=== PATIENT | male | born 1940 | race Caucasian/White ===

== ENCOUNTER 2021-01-01 09:33 | Outpatient (CLI) | payer MEDICARE | END 2021-01-01 09:34 | disposition home or self-care (01) | LOC: NM 09:33 | PROVIDERS: ATTEND Urology | DX: R97.20 Elevated prostate specific antigen [PSA] (principal) | CPT/HCPCS: 78306; A9503 ==

== ENCOUNTER 2021-11-15 17:21 | Inpatient (IN) | payer MEDICARE ==
[2021-11-15] MEDS ORDERED: Haloperidol Lactate 5 MG/ML VIAL ONE (17:26)
[2021-11-15 17:33] LABS: Actual Bicarbonate (HCO3v) 20 mEq/L (22-28); Analyzer IN Cardio ER; Calcium, Ionized (venous) 1.04 mmol/L (1.16-1.32); Chloride (VBG) 95 mmol/L (98-106); Potassium (VBG) 3.78 mmol/L (3.70-5.30); Sodium 131.6 mmol/L (133-146); pH (venous) 7.36 (7.32-7.43)
[2021-11-15 18:12] LABS: ALT (SGPT) 20 U/L (8-55); AST (SGOT) 22 U/L (5-34); Albumin 4.1 g/dL (3.4-4.8); Alkaline Phosphatase 96 U/L (40-110); Anion Gap 24 mmol/L (10-20); BUN (Urea Nitrogen) 14 mg/dL (8.4-25.7); Bilirubin, Total 0.7 mg/dL (0.2-1.2); Calc. Creatinine Clearance 0 mL/min (70-130); Carbon Dioxide 19 mmol/L (23-31); Chloride 95 mmol/L (98-107); Globulin 2.3 g/dL (2.4-3.5); Magnesium 1.9 mg/dL (1.6-2.6); Potassium 3.7 mmol/L (3.5-5.1); Protein, Total 6.4 g/dL (5.8-8.1); Sodium 134 mmol/L (136-145)
[2021-11-15 18:13] LABS: #Eosinphils 0.1 thou/uL (0.0-0.7); #Lymphocytes 1.9 thou/uL (1.20-3.40); #Monocytes 0.4 thou/uL (0.11-0.59); #Neutrophils 5.2 thou/uL (1.40-6.50); %Basophils 0.3 % (0.0-1.0); %Eosinophils 1.1 % (0.0-10.0); %Lymphocytes 24.9 % (21.0-51.0); %Monocytes 5.2 % (0.0-10.0); %Neutrophils 68.5 % (42.0-75.0); Hemoglobin 13.3 g/dL (14.0-18.0); Mean Corpuscular HGB CONC 34.4 g/dL (32.0-36.0); Mean Corpuscular Hemoglobin 33.6 pg (27.0-31.0); Mean Corpuscular Volume 97.5 fL (78.0-98.0); Mean Platelet Volume 9.3 fL (7.4-10.4); Platelet Count 149 thou/uL (130-400); RBC Distribution Width 11.3 % (11.5-14.5); Red Blood Cell (RBC) Count 3.97 mill/uL (4.70-6.10); White Blood Cell (WBC) Count 7.7 thou/uL (4.8-10.8)
[2021-11-15] MEDS ORDERED: levETIRAcetam in NS 0 ML ONE (18:24)
[2021-11-15] MEDS ORDERED: Lorazepam 2 MG/ML VIAL ONE (18:24)
[2021-11-15 18:28] LABS: Glucose 780 mg/dL (83-110)
[2021-11-15] MEDS ORDERED: levETIRAcetam in NS 200 ML ONE (18:29)
[2021-11-15 18:51] LABS: Bilirubin Negative (Negative); Blood, Urine Negative (Negative); Clarity Clear (Clear); Glucose, Urine (Dipstick) Greater than 1000 mg/dL (Negative); Ketone, Urine Trace mg/dL (Negative); Leukocyte Negative Leu/uL (Negative); Nitrite Negative (Negative); Protein, Urine (Dipstick) Negative (Neg-Trace); Specific Gravity, Urine 1.031 (1.002-1.036); Urobilinogen Normal mg/dL (Less than 2)
[2021-11-15] MEDS ORDERED: Ondansetron ODT 4 MG TAB SL PRN (19:45)
[2021-11-15] MEDS ORDERED: Ondansetron PF 4 MG/2 ML Vial IVP PRN (19:45)
[2021-11-15] MEDS ORDERED: Acetaminophen 325 MG TAB PO PRN (19:45)
[2021-11-15] MEDS ORDERED: Insulin Regular 300 UNITS/3 ML VIAL ONE (20:11)
[2021-11-15] MEDS ORDERED: INSULIN REGULAR IN 0.9 % NACL 100 UNIT/100 ML BAG ONE (20:35)
[2021-11-15] MEDS ORDERED: NS 0.9% w/ 20 MEQ KCL 1,000 ML ONE (20:43)
[2021-11-15] MEDS ORDERED: levETIRAcetam 500 MG TAB PO SCH (21:00)
[2021-11-15 21:07] LABS: Phosphorus 4.9 mg/dL (2.3-4.7)
[2021-11-15] MEDS ORDERED: Acetaminophen 650 MG Suppository PR PRN (21:30)
[2021-11-15] MEDS ORDERED: Dextrose 50% Abboject 50 ML SYRINGE SLOW IVP PRN ×2 (21:30→23:45)
[2021-11-15] MEDS ORDERED: Dextrose 5% in Water 1,000 ML IV PRN ×2 (21:30→23:45)
[2021-11-15 22:47] VITALS: BMI 24.0
[2021-11-15] MEDS ORDERED: Sodium Chloride 0.9% 1,000 ML IV PRN ×4 (23:45)
[2021-11-15] MEDS ORDERED: HUMULIN R 100 UNITS in Sodium Chloride 0.9% 100 ML IVPB SCH (23:45)
[2021-11-15] MEDS ORDERED: Insulin Regular 300 UNITS/3 ML VIAL IVP SCH (23:45)
[2021-11-15] MEDS ORDERED: Dextrose 5 %-0.45 % NaCl 1,000 ML IV PRN (23:45)
[2021-11-15] MEDS ORDERED: NS 0.9% w/ 20 MEQ KCL 1,000 ML/1,000 ML BAG IV PRN ×2 (23:45)
[2021-11-15] MEDS ORDERED: OLANZapine 10 MG VIAL IM SCH (23:45)
[2021-11-15] MEDS ORDERED: D5 1/2 NS w/20 mEq KCL 1,000 ML IV PRN (23:45)
[2021-11-15] MEDS ORDERED: ADD ELECTROLYTE REPLACEMENT SET TO PROFILE FS SCH (23:45)
[2021-11-16] MEDS: Sodium Chloride 0.9% 1,000 ML IV SCH ×3 (00:30→21:56)
[2021-11-16] MEDS ORDERED: Ziprasidone 20 MG VIAL IM SCH (00:30)
[2021-11-16] MEDS ORDERED: Lorazepam 2 MG/ML VIAL SLOW IVP PRN (03:44)
[2021-11-16 04:05] LABS: Hemoglobin A1c 11.5 % (4.0-6.0)
[2021-11-16 04:27] LABS: #Lymphocytes 1.5 thou/uL (1.20-3.40); #Monocytes 0.8 thou/uL (0.11-0.59); #Neutrophils 9.3 thou/uL (1.40-6.50); %Basophils 0.2 % (0.0-1.0); %Eosinophils 0.4 % (0.0-10.0); %Lymphocytes 12.5 % (21.0-51.0); %Monocytes 6.5 % (0.0-10.0); %Neutrophils 80.4 % (42.0-75.0); Hemoglobin 12.9 g/dL (14.0-18.0); Mean Corpuscular HGB CONC 34.1 g/dL (32.0-36.0); Mean Corpuscular Hemoglobin 32.4 pg (27.0-31.0); Mean Corpuscular Volume 94.8 fL (78.0-98.0); Mean Platelet Volume 8.6 fL (7.4-10.4); Platelet Count 156 thou/uL (130-400); RBC Distribution Width 11.5 % (11.5-14.5); Red Blood Cell (RBC) Count 3.97 mill/uL (4.70-6.10); White Blood Cell (WBC) Count 11.6 thou/uL (4.8-10.8)
[2021-11-16 05:06] LABS: Anion Gap 15 mmol/L (10-20); BUN (Urea Nitrogen) 9 mg/dL (8.4-25.7); Calc. Creatinine Clearance 86 mL/min (70-130); Calcium 8.7 mg/dL (7.8-10.44); Carbon Dioxide 28 mmol/L (23-31); Chloride 106 mmol/L (98-107); Glucose 115 mg/dL (83-110); Sodium 146 mmol/L (136-145)
[2021-11-16 05:43] LABS: Potassium 2.8 mmol/L (3.5-5.1)
[2021-11-16] MEDS ORDERED: Electrolyte Replacement Protocol 1 EACH FS PRN (06:06)
[2021-11-16] MEDS ORDERED: Magnesium 2 GM/50 ML(in water) 2 GM in Premix Bag 1 BAG IVPB SCH (06:15)
[2021-11-16] MEDS: Potassium Chloride 40 MEQ in Sodium Chloride 0.9% 250 ML 250 ML IVPB SCH ×2 (06:57→09:46)
[2021-11-16 07:17] LABS: SARS-CoV-2 NAA Rapid Test DETECTED (NotDetected)
[2021-11-16] MEDS ORDERED: Magnevist 469MG/ML 20 ML VIAL ONE (09:12)
[2021-11-16] MEDS: Enoxaparin Sodium 40 MG/0.4 ML SYRINGE SC SCH (09:45)
[2021-11-16] MEDS: levETIRAcetam in NS 1,000 MG in Premix Bag 1 BAG IVPB SCH ×2 (09:45→20:32)
[2021-11-16] MEDS ORDERED: Piperacillin/Tazobactam 3.375 GM in Sodium Chloride 0.9% 100 ML IVPB SCH ×2 (10:45→11:15)
[2021-11-16] MEDS: HumaLOG 300 UNITS/3 ML VIAL SC PRN (11:31)
[2021-11-16] MEDS: methylPREDNISolone Sod Succ 40 MG VIAL IVP SCH ×2 (13:27→21:56)
[2021-11-16] MEDS: Piperacillin/Tazobactam 3.375 GM in Sodium Chloride 0.9% 100 ML IVPB SCH (20:32)
[2021-11-17] MEDS: hydrALAZINE 20 MG/ML VIAL SLOW IVP PRN (04:08)
[2021-11-17] MEDS: Piperacillin/Tazobactam 3.375 GM in Sodium Chloride 0.9% 100 ML IVPB SCH ×2 (04:08→11:01)
[2021-11-17] MEDS: Sodium Chloride 0.9% 1,000 ML IV SCH ×2 (04:11→16:11)
[2021-11-17] MEDS: methylPREDNISolone Sod Succ 40 MG VIAL IVP SCH (06:28)
[2021-11-17] MEDS: HumaLOG 300 UNITS/3 ML VIAL SC PRN ×3 (06:29→17:29)
[2021-11-17] MEDS: Enoxaparin Sodium 40 MG/0.4 ML SYRINGE SC SCH (08:00)
[2021-11-17] MEDS: levETIRAcetam in NS 1,000 MG in Premix Bag 1 BAG IVPB SCH (08:00)
[2021-11-17 08:01] LABS: ALT (SGPT) 19 U/L (8-55); AST (SGOT) 24 U/L (5-34); Albumin 3.5 g/dL (3.4-4.8); Alkaline Phosphatase 88 U/L (40-110); Anion Gap 19 mmol/L (10-20); BUN (Urea Nitrogen) 12 mg/dL (8.4-25.7); Bilirubin, Total 1.2 mg/dL (0.2-1.2); Calc. Creatinine Clearance 82 mL/min (70-130); Calcium 8.5 mg/dL (7.8-10.44); Carbon Dioxide 17 mmol/L (23-31); Chloride 107 mmol/L (98-107); Globulin 2.5 g/dL (2.4-3.5); Glucose 254 mg/dL (83-110); Potassium 3.1 mmol/L (3.5-5.1); Sodium 140 mmol/L (136-145)
[2021-11-17 08:15] LABS: #Lymphocytes 0.7 thou/uL (1.20-3.40); #Monocytes 0.5 thou/uL (0.11-0.59); #Neutrophils 9.6 thou/uL (1.40-6.50); %Basophils 0.1 % (0.0-1.0); %Eosinophils 0.1 % (0.0-10.0); %Lymphocytes 6.9 % (21.0-51.0); %Monocytes 4.4 % (0.0-10.0); %Neutrophils 88.5 % (42.0-75.0); Hemoglobin 13.3 g/dL (14.0-18.0); Mean Corpuscular HGB CONC 35.4 g/dL (32.0-36.0); Mean Corpuscular Hemoglobin 33.1 pg (27.0-31.0); Mean Corpuscular Volume 93.4 fL (78.0-98.0); Mean Platelet Volume 8.9 fL (7.4-10.4); Platelet Count 148 thou/uL (130-400); RBC Distribution Width 11.2 % (11.5-14.5); Red Blood Cell (RBC) Count 4.03 mill/uL (4.70-6.10); White Blood Cell (WBC) Count 10.9 thou/uL (4.8-10.8)
[2021-11-17 08:44] LABS: Prothrombin Time 13.8 sec (12.0-14.7)
[2021-11-17 08:45] LABS: PTT 21.7 sec (22.9-36.1)
[2021-11-17] MEDS: Potassium Chloride 20 MEQ in Premix Bag 1 BAG IVPB SCH ×2 (09:15→11:02)
[2021-11-17] MEDS ORDERED: glipiZIDE 5 MG TAB PO SCH (13:52)
[2021-11-17] MEDS: levETIRAcetam 500 MG TAB PO SCH (21:00)
[2021-11-17] MEDS: Lantus 1000 UNITS/10 ML VIAL SC SCH (21:02)
[2021-11-18] MEDS: Sodium Chloride 0.9% 1,000 ML IV SCH (02:00)
[2021-11-18] MEDS: HumaLOG 300 UNITS/3 ML VIAL SC PRN ×3 (06:35→20:21)
[2021-11-18] MEDS: levETIRAcetam 500 MG TAB PO SCH ×2 (07:58→20:18)
[2021-11-18] MEDS: glipiZIDE 5 MG TAB PO SCH (07:58)
[2021-11-18] MEDS: Enoxaparin Sodium 40 MG/0.4 ML SYRINGE SC SCH (07:58)
[2021-11-18] MEDS ORDERED: methylPREDNISolone Sod Succ 40 MG VIAL IVP SCH (09:00)
[2021-11-18] MEDS: Lantus 1000 UNITS/10 ML VIAL SC SCH (20:19)
[2021-11-19 04:39] LABS: Anion Gap 12 mmol/L (10-20); BUN (Urea Nitrogen) 11 mg/dL (8.4-25.7); Calc. Creatinine Clearance 92 mL/min (70-130); Calcium 8.4 mg/dL (7.8-10.44); Carbon Dioxide 23 mmol/L (23-31); Chloride 106 mmol/L (98-107); Glucose 164 mg/dL (83-110); Sodium 138 mmol/L (136-145)
[2021-11-19 04:45] LABS: Potassium 2.9 mmol/L (3.5-5.1)
[2021-11-19] MEDS: Potassium Chloride 40 MEQ in Sodium Chloride 0.9% 250 ML 250 ML IVPB SCH ×2 (05:44→11:55)
[2021-11-19 07:49] LABS: Magnesium 1.7 mg/dL (1.6-2.6)
[2021-11-19] MEDS: Enoxaparin Sodium 40 MG/0.4 ML SYRINGE SC SCH (08:47)
[2021-11-19] MEDS: glipiZIDE 5 MG TAB PO SCH (08:47)
[2021-11-19] MEDS: levETIRAcetam 500 MG TAB PO SCH ×2 (08:47→19:43)
[2021-11-19] MEDS ORDERED: Magnesium 2 GM/50 ML(in water) 2 GM in Premix Bag 1 BAG IVPB SCH (09:00)
[2021-11-19] MEDS ORDERED: Lisinopril 5 MG TAB PO SCH (10:15)
[2021-11-19 13:10] LABS: Anion Gap 12 mmol/L (10-20); BUN (Urea Nitrogen) 12 mg/dL (8.4-25.7); Calc. Creatinine Clearance 77 mL/min (70-130); Calcium 8.8 mg/dL (7.8-10.44); Carbon Dioxide 23 mmol/L (23-31); Chloride 107 mmol/L (98-107); Glucose 245 mg/dL (83-110); Potassium 3.8 mmol/L (3.5-5.1); Sodium 138 mmol/L (136-145)
[2021-11-19] MEDS: HumaLOG 300 UNITS/3 ML VIAL SC PRN ×3 (13:56→19:45)
[2021-11-19] MEDS: Lantus 1000 UNITS/10 ML VIAL SC SCH (19:44)
[2021-11-20] MEDS: hydrALAZINE 20 MG/ML VIAL SLOW IVP PRN (04:03)
[2021-11-20 05:30] LABS: Magnesium 1.9 mg/dL (1.6-2.6)
[2021-11-20] MEDS ORDERED: Magnesium 2 GM/50 ML(in water) 2 GM in Premix Bag 1 BAG IVPB SCH (06:45)
[2021-11-20 07:40] LABS: Troponin I 0.014 ng/mL (< 0.028)
[2021-11-20 08:10] LABS: Chloride 108 mmol/L (98-107); Potassium 3.2 mmol/L (3.5-5.1); Sodium 139 mmol/L (136-145)
[2021-11-20 08:11] LABS: Calcium 8.4 mg/dL (7.8-10.44); Glucose 155 mg/dL (83-110)
[2021-11-20 08:13] LABS: Anion Gap 12 mmol/L (10-20); Carbon Dioxide 22 mmol/L (23-31)
[2021-11-20 08:15] LABS: Calc. Creatinine Clearance 93 mL/min (70-130)
[2021-11-20 08:16] LABS: BUN (Urea Nitrogen) 9 mg/dL (8.4-25.7)
[2021-11-20] MEDS ORDERED: Potassium Chloride 20 MEQ TAB PO SCH (08:30)
[2021-11-20] MEDS ORDERED: Lisinopril 5 MG TAB PO SCH ×2 (09:00)
[2021-11-20] MEDS: levETIRAcetam 500 MG TAB PO SCH (09:33)
[2021-11-20] MEDS: Enoxaparin Sodium 40 MG/0.4 ML SYRINGE SC SCH (09:33)
[2021-11-20] MEDS: glipiZIDE 5 MG TAB PO SCH (09:34)
[2021-11-20] MEDS: HumaLOG 300 UNITS/3 ML VIAL SC PRN (12:50)
[2021-11-20 16:28] LABS: Potassium 3.6 mmol/L (3.5-5.1)
[2021-11-20 17:12] VITALS: BP 138/74; TEMP 98
== END 2021-11-20 19:37 | disposition home or self-care (01) | DRG 100 ==
LOC: ERS 17:21 → IMCU/EMU 19:35 → 2SW 11-18 19:56
PROVIDERS: ADMIT Student in an Organized Health Care Education/Training Program; ATTEND Internal Medicine
PROC: 8E0ZXY6 Isolation (ICD-10-PCS; principal; 2021-11-15)
DX: G40.909 Epilepsy, unspecified, not intractable, without status epilepticus (principal); U07.1 COVID-19; C79.51 Secondary malignant neoplasm of bone; I47.1 Supraventricular tachycardia; E87.1 Hypo-osmolality and hyponatremia; N17.9 Acute kidney failure, unspecified; E11.65 Type 2 diabetes mellitus with hyperglycemia; I10 Essential (primary) hypertension; E87.6 Hypokalemia; C88.0 Waldenstrom macroglobulinemia; C61 Malignant neoplasm of prostate; Z28.82 Immunization not carried out because of caregiver refusal; Z85.72 Personal history of non-Hodgkin lymphomas; Z79.899 Other long term (current) drug therapy; Z79.52 Long term (current) use of systemic steroids
CPT/HCPCS: 36415; 36416; 51702; 70450; 70553; 71045; 72125; 80048; 80053; 81003; 82010; 82805; 83036; 83735; 83930; 84100; 84484; 85025; 85610; 85730; 87040; 87086; 93005; 93010; 96374; 96375; A9579; J0360; J1630; J1650; J1815; J1953; J2060; J2543; J2920; J3475; J3480; J3486; J3490; J7050; U0002

== ENCOUNTER 2022-12-29 13:43 | Emergency (ER) | payer MEDICARE ==
[2022-12-29 14:25] LABS: #Eosinphils 0.1 thou/uL (0.0-0.7); #Lymphocytes 0.8 thou/uL (1.20-3.40); #Monocytes 0.4 thou/uL (0.11-0.59); #Neutrophils 7.2 thou/uL (1.40-6.50); %Basophils 0.6 % (0.0-1.0); %Eosinophils 1.2 % (0.0-10.0); %Lymphocytes 9.5 % (21.0-51.0); %Monocytes 5.2 % (0.0-10.0); %Neutrophils 83.6 % (42.0-75.0); Hemoglobin 12.4 g/dL (14.0-18.0); Mean Corpuscular HGB CONC 36.1 g/dL (32.0-36.0); Mean Corpuscular Hemoglobin 34.5 pg (27.0-31.0); Mean Corpuscular Volume 95.5 fl (78.0-98.0); Mean Platelet Volume 8.1 fL (7.4-10.4); Platelet Count 183 10x3/uL (130-400); RBC Distribution Width 11.7 % (11.5-14.5); Red Blood Cell (RBC) Count 3.59 mill/uL (4.70-6.10); White Blood Cell (WBC) Count 8.6 10x3/uL (4.8-10.8)
[2022-12-29 15:15] LABS: ALT (SGPT) 14 U/L (8-55); AST (SGOT) 20 U/L (5-34); Albumin 4.2 g/dL (3.4-4.8); Alkaline Phosphatase 92 U/L (40-110); Anion Gap 12 mmol/L (10-20); BUN (Urea Nitrogen) 24 mg/dL (8.4-25.7); Bilirubin, Total 0.6 mg/dL (0.2-1.2); Calc. Creatinine Clearance 0 mL/min (70-130); Calcium 9.5 mg/dL (7.8-10.44); Carbon Dioxide 26 mmol/L (23-31); Chloride 107 mmol/L (98-107); Estimated GFR 80; Globulin 2.4 g/dL (2.4-3.5); Glucose 140 mg/dL (83-110); Potassium 4.3 mmol/L (3.5-5.1); Protein, Total 6.6 g/dL (5.8-8.1); Sodium 141 mmol/L (136-145)
== END 2022-12-29 15:55 | disposition home or self-care (01) ==
LOC: ERS 13:43
DX: I10 Essential (primary) hypertension (principal); Z79.899 Other long term (current) drug therapy
CPT/HCPCS: 36415; 80053; 85025; 93005

== ENCOUNTER 2023-06-01 08:23 | Outpatient (CLI) | payer MEDICARE ==
[2023-06-01] MEDS ORDERED: Iopamidol 370 76% 100 ML VIAL ONE (10:28)
== END 2023-06-01 08:24 | disposition home or self-care (01) ==
LOC: CT 08:23
PROVIDERS: ATTEND Internal Medicine Hematology & Oncology
DX: C61 Malignant neoplasm of prostate (principal); R97.20 Elevated prostate specific antigen [PSA]
CPT/HCPCS: 74177; 78306; A9503; Q9967

== ENCOUNTER 2023-07-20 10:38 | Outpatient (CLI) | payer MEDICARE | END 2023-07-20 10:39 | disposition home or self-care (01) | LOC: BICRAD 10:38 | PROVIDERS: ATTEND Internal Medicine | DX: M25.562 Pain in left knee (principal); M17.12 Unilateral primary osteoarthritis, left knee ==

== ENCOUNTER 2023-07-28 10:08 | Outpatient (CLI) | payer MEDICARE | END 2023-07-28 10:09 | disposition home or self-care (01) | LOC: BICMRI 10:08 | PROVIDERS: ATTEND Internal Medicine | DX: M25.562 Pain in left knee (principal); S83.241A Other tear of medial meniscus, current injury, right knee, initial encounter; M71.21 Synovial cyst of popliteal space [Baker], right knee; M17.11 Unilateral primary osteoarthritis, right knee ==

== ENCOUNTER 2023-08-26 08:49 | Outpatient (CLI) | payer MEDICARE | END 2023-08-26 08:50 | disposition home or self-care (01) | LOC: CT 08:49 | PROVIDERS: ATTEND Internal Medicine Hematology & Oncology | DX: C61 Malignant neoplasm of prostate (principal); E11.9 Type 2 diabetes mellitus without complications; R97.20 Elevated prostate specific antigen [PSA]; D47.2 Monoclonal gammopathy | CPT/HCPCS: 74177; 78306; A9503 ==

== ENCOUNTER 2023-10-11 15:43 | Outpatient (CLI) | payer MEDICARE | END 2023-10-11 15:44 | disposition home or self-care (01) | LOC: BICRAD 15:43 | PROVIDERS: ATTEND Internal Medicine | DX: M25.532 Pain in left wrist (principal) ==

== ENCOUNTER 2023-11-24 13:46 | Emergency (ER) | payer MEDICARE ==
[2023-11-24 14:50] LABS: #Monocytes 0.5 thou/uL (0.11-0.59); #Neutrophils 11.1 thou/uL (1.40-6.50); %Basophils 0.1 % (0.0-1.0); %Lymphocytes 3.3 % (21.0-51.0); %Neutrophils 92.2 % (42.0-75.0); Hematocrit 31.2 % (42.0-52.0); Hemoglobin 10.7 g/dL (14.0-18.0); Mean Corpuscular HGB CONC 34.3 g/dL (32.0-36.0); Mean Corpuscular Hemoglobin 34.1 pg (27.0-31.0); Mean Corpuscular Volume 99.4 fl (78.0-98.0); Mean Platelet Volume 9.4 fL (7.4-10.4); Platelet Count 276 10x3/uL (130-400); RBC Distribution Width 12.7 % (11.5-14.5); Red Blood Cell (RBC) Count 3.14 mill/uL (4.70-6.10)
[2023-11-24 15:15] LABS: ALT (SGPT) 13 U/L (8-55); AST (SGOT) 20 U/L (5-34); Albumin 4.2 g/dL (3.4-4.8); Alkaline Phosphatase 55 U/L (40-110); Anion Gap 15 mmol/L (10-20); BUN (Urea Nitrogen) 29 mg/dL (8.4-25.7); Bilirubin, Total 0.5 mg/dL (0.2-1.2); Calc. Creatinine Clearance 0 mL/min (70-130); Calcium 10.1 mg/dL (7.8-10.44); Carbon Dioxide 24 mmol/L (23-31); Chloride 102 mmol/L (98-107); Estimated GFR 57; Globulin 1.9 g/dL (2.4-3.5); Glucose 137 mg/dL (83-110); Lipase 15 U/L (8-78); Potassium 4.8 mmol/L (3.5-5.1); Protein, Total 6.1 g/dL (5.8-8.1); Sodium 136 mmol/L (136-145)
[2023-11-24 19:03] LABS: Bacteria/HPF None Seen HPF (None Seen); Bilirubin Negative (Negative); Blood, Urine Negative (Negative); CAUTI Indications for Culture Dysuria,urgency,freq; Clarity Clear (Clear); Glucose, Urine (Dipstick) Normal (Negative); Ketone, Urine Negative (Negative); Leukocyte Negative Leu/uL (Negative); Nitrite Negative (Negative); Protein, Urine (Dipstick) Negative (Neg-Trace); RBC/HPF 0-3 HPF (0-3); Specific Gravity, Urine 1.029 (1.002-1.036); Squamous Epithelial None Seen HPF (0-3); Urobilinogen Normal mg/dL (Less than 2); WBC/HPF 0-3 HPF (0-3); pH, Urine 5.5 (5.0-9.0)
[2023-11-24 19:05] LABS: Urine Culture Reflex No No
== END 2023-11-24 19:50 | disposition home or self-care (01) ==
LOC: ERS 13:46
DX: K59.00 Constipation, unspecified (principal); N20.1 Calculus of ureter; I10 Essential (primary) hypertension
CPT/HCPCS: 36415; 74177; 80053; 81001; 83690; 85025

== ENCOUNTER 2024-05-29 15:39 | Emergency (ER) | payer MEDICARE, OTHER | END 2024-05-29 16:48 | disposition left against medical advice (07) | LOC: ERS 15:39 | DX: Z53.21 Procedure and treatment not carried out due to patient leaving prior to being seen by health care provider (principal) ==

== ENCOUNTER 2024-06-27 08:19 | Outpatient (CLI) | payer MEDICARE | END 2024-06-27 08:20 | disposition home or self-care (01) | LOC: ULT 08:19 | PROVIDERS: ATTEND Internal Medicine | DX: E78.2 Mixed hyperlipidemia (principal); M79.2 Neuralgia and neuritis, unspecified; G56.01 Carpal tunnel syndrome, right upper limb; R73.03 Prediabetes; R14.0 Abdominal distension (gaseous); R63.0 Anorexia; E66.9 Obesity, unspecified; Z79.899 Other long term (current) drug therapy | CPT/HCPCS: 76705 ==

== ENCOUNTER 2024-07-27 10:13 | Outpatient (CLI) | payer MEDICARE ==
[2024-07-27 11:22] LABS: #Basophils 0.03 10x3/uL (0.0-0.2); %Basophils 0.4 % (0.0-1.0); %Eosinophils 0.9 % (0.0-10.0); %Lymphocytes 17.2 % (21.0-51.0); %Monocytes 7.2 % (0.0-10.0); %Neutrophils 73.9 % (42.0-75.0); Hematocrit 37.8 % (42.0-52.0); Hemoglobin 12.6 g/dL (14.0-18.0); Mean Corpuscular HGB CONC 33.3 g/dL (32.0-36.0); Mean Corpuscular Hemoglobin 32.4 pg (27.0-31.0); Mean Corpuscular Volume 97.2 fL (78.0-98.0); Mean Platelet Volume 9.2 fL (7.4-10.4); Platelet Count 271 10x3/uL (130-400); RBC Distribution Width 13.2 % (11.5-14.5); Red Blood Cell (RBC) Count 3.89 mill/uL (4.70-6.10)
[2024-07-27 11:49] LABS: ALT (SGPT) 12 U/L (8-55); AST (SGOT) 16 U/L (5-34); Albumin 4.2 g/dL (3.4-4.8); Alkaline Phosphatase 58 U/L (40-110); Anion Gap 14 mmol/L (10-20); BUN (Urea Nitrogen) 20 mg/dL (8.4-25.7); Bilirubin, Direct 0.2 mg/dL (0.1-0.3); Bilirubin, Total 0.6 mg/dL (0.2-1.2); Calc. Creatinine Clearance 0 mL/min (70-130); Carbon Dioxide 26 mmol/L (23-31); Chloride 104 mmol/L (98-107); Estimated GFR 86; Globulin 2.9 g/dL (2.4-3.5); Glucose 115 mg/dL (83-110); Potassium 5.1 mmol/L (3.5-5.1); Protein, Total 7.1 g/dL (5.8-8.1); Sodium 139 mmol/L (136-145)
== END 2024-07-27 10:14 | disposition home or self-care (01) ==
LOC: LABBT 10:13
PROVIDERS: ATTEND Surgery
DX: Z01.818 Encounter for other preprocedural examination (principal); K82.8 Other specified diseases of gallbladder
CPT/HCPCS: 80053; 80076; 85025; 93005; 93010

== ENCOUNTER 2024-07-28 07:38 | Day surgery (SDC) | payer MEDICARE ==
[2024-07-27 10:41] VITALS: BMI 22.4
[2024-07-28] MEDS ORDERED: SUGAMMADEX SODIUM 200 MG/2 ML VIAL ONE (09:03)
[2024-07-28] MEDS ORDERED: Lidocaine 1% PF 5 ML VIAL ONE (09:03)
[2024-07-28] MEDS ORDERED: Ondansetron PF 4 MG/2 ML Vial ONE (09:03)
[2024-07-28] MEDS ORDERED: Rocuronium Bromide 10 MG/ML (10ML VIAL) ONE (09:03)
[2024-07-28] MEDS ORDERED: fentaNYL PF 100 MCG/2 ML SYRINGE ONE (09:03)
[2024-07-28] MEDS ORDERED: Dexamethasone 4 mg/ml Vial ONE (09:03)
[2024-07-28] MEDS ORDERED: PROPOFOL 20 ML ONE (09:03)
[2024-07-28] MEDS ORDERED: Bupivacaine 0.25% HCL 30 ML VIAL ONE (09:38)
[2024-07-28] MEDS ORDERED: EPINEPHrine 1 MG/ML VIAL ONE (09:38)
[2024-07-28] MEDS ORDERED: Indocyanine Green 25 MG/10 ML VIAL ONE (09:38)
[2024-07-28] MEDS ORDERED: CEFAZOLIN 2 GM VIAL ONE (09:38)
[2024-07-28] MEDS ORDERED: cefOXitin 2 GM VIAL ONE (09:50)
[2024-07-28] MEDS ORDERED: Hydrocortisone Sod Succ/PF 100 mg/2 ml Vial ONE (10:01)
[2024-07-28] MEDS ORDERED: ePHEDrine Sulfate 50 MG/10 ML VIAL ONE (10:13)
[2024-07-28] MEDS ORDERED: PHENYLEPHRINE-NS 100 MCG/ML 10 ML SYRINGE ONE ×2 (10:25→11:26)
[2024-07-28] MEDS ORDERED: fentaNYL 50 mcg/mL 1 mL Vial ONE (12:03)
== END 2024-07-28 14:13 | disposition home or self-care (01) ==
LOC: SDC 07:38
PROVIDERS: ATTEND Surgery
PROC: 0FT44ZZ Resection of Gallbladder, Percutaneous Endoscopic Approach (ICD-10-PCS; principal; 2024-07-28)
DX: K80.12 Calculus of gallbladder with acute and chronic cholecystitis without obstruction (principal); K82.8 Other specified diseases of gallbladder; K26.9 Duodenal ulcer, unspecified as acute or chronic, without hemorrhage or perforation; I10 Essential (primary) hypertension; C61 Malignant neoplasm of prostate; E11.9 Type 2 diabetes mellitus without complications; Z79.899 Other long term (current) drug therapy; Z98.49 Cataract extraction status, unspecified eye; Z90.49 Acquired absence of other specified parts of digestive tract
CPT/HCPCS: 47562; 82962; C1889 ×2; J0171; J0665; J0694; J1720; J2405; J2704; J3010; S2900; 36416; 88304; J1100

== ENCOUNTER 2025-03-16 09:21 | Outpatient (CLI) | payer MEDICARE | END 2025-03-16 09:22 | disposition home or self-care (01) | LOC: BICCT 09:21 | PROVIDERS: ATTEND Specialist | DX: M80.8AXA Other osteoporosis with current pathological fracture, other site, initial encounter for fracture (principal); M89.9 Disorder of bone, unspecified | CPT/HCPCS: 74176 ==